=== PATIENT | male | born 1965 | race Caucasian/White ===

== ENCOUNTER 2017-09-14 18:48 | Emergency (ER) | payer BC ==
[2017-09-14 21:59] LABS: ADD MAN DIFF? NO
[2017-09-14 22:01] LABS: WHITE BLOOD COUNT 8.8 10^3/ul (4.8-10.8)
[2017-09-14 22:01] LABS: BASOPHIL # 0.1 10^3/ul (0.0-0.1); BASOPHILS % 0.7 % (0.0-2.0); EOSINOPHILS # 0.2 10^3/ul (0.0-0.5); EOSINOPHILS % 2.2 % (0.0-7.0); HEMATOCRIT 45.1 % (42.0-52.0); LYMPHOCYTES # 3.1 10^3/ul (0.8-2.9); LYMPHOCYTES % 35.2 % (15.0-51.0); MEAN CORPUSCULAR HGB CONC 35.5 g/dl (32.0-37.0); MEAN CORPUSCULAR VOLUME 95.8 fl (82.0-101.0); MEAN PLATELET VOLUME 9.2 fl (7.4-10.4); MONOCYTE # 0.7 10^3/ul (0.3-0.9); MONOCYTES % 8.2 % (0.0-11.0); NEUTROPHIL # 4.7 10^3/ul (1.6-7.5); NEUTROPHILS % 53.4 % (39.0-77.0); PLATELET COUNT 356 10^3/UL (140-415); RED BLOOD COUNT 4.71 10^6/ul (4.70-6.10); RED CELL DISTRIBUTION WIDTH 12.5 % (11.5-14.5)
[2017-09-14] MEDS: TRANEXAMIC ACID 1,000 MG in DEXTROSE 5% 100 ML IV (22:03)
[2017-09-14 23:16] LABS: ANION GAP 17 (8-16); BLOOD UREA NITROGEN 14 mg/dl (7-20); CALCIUM 9.5 mg/dl (8.4-10.2); CARBON DIOXIDE 27 mmol/L (21-31); CHLORIDE 102 mmol/L (97-110); CREATININE 0.81 mg/dl (0.61-1.24); GLUCOSE 106 mg/dl (70-220); POTASSIUM 4.2 mmol/L (3.5-5.1); SODIUM 142 mmol/L (135-144)
[2017-09-14] MEDS: OXYMETAZOLINE 0.05% 15 ML NAS SPRAY NASAL (23:19)
[2017-09-14 23:25] LABS: INR 0.91; PROTIME 12.3 Sec (11.9-14.9)
[2017-09-14 23:26] LABS: PARTIAL THROMBOPLASTIN TIME 26.5 Sec (25.0-35.0)
[2017-09-15] MEDS: PHENYLephrine 0.5% 15 ML NAS SPRAY NASAL (01:24)
[2017-09-15] MEDS: OXYCODONE/ACETAMINOPHEN (5/325) TAB PO (03:09)
[2017-09-15] MEDS: ALPRAZOLAM 1 MG TAB PO (03:09)
== END 2017-09-15 04:27 | disposition home or self-care (01) ==
LOC: E/R 09-15 04:27
DX: R04.0 Epistaxis (principal); I10 Essential (primary) hypertension
CPT/HCPCS: 36415; 80048; 85025; 85610; 85730; 86850; 86900; 86901; 96374; 99291-25

== ENCOUNTER 2017-09-17 20:59 | Emergency (ER) | payer BC | END 2017-09-17 23:12 | disposition home or self-care (01) | LOC: FTE 20:59 | DX: H10.9 Unspecified conjunctivitis (principal); R04.0 Epistaxis; I10 Essential (primary) hypertension | CPT/HCPCS: 93005; 99283 ==